=== PATIENT | female | born 1985 | race Caucasian/White ===

== ENCOUNTER 2016-09-21 10:59 | Emergency (ER) | payer SELFPAY ==
--- NOTE | ~2016-09-21 | CR20 ---
[facility]. [facility] A Service of [facility] & [facility] RADIOLOGY TEXT RESULTS PATIENT: EBONIE WYATT LOCATION: SED : 81 UNIT #: [id number] AGE: [address]: Satinder Mix MD SEX: F ORDER DR: [id number] [address] [address] [id number] E MR#: [id number] Acc #: [id number] NAME: EBONIE WYATT : 1985 SEX: F STUDY DATE/TIME: 09/21/2016 09:46 UNIT: SED ROOM: STUDY DESCRIPTION: CR Ankle Min 3 Views Lt Attending Physician: Satinder Mix M.D. Ordering Physician: Satinder Mix M.D. Primary Care Physician: Primary Care Physician No MEDICAL IMAGING REPORT This report is preliminary unless electronic signature is present. EXAM Left ankle 3 views 09/21/2016 0946 hours HISTORY 31-year-old woman who rolled her ankle and fell in her driveway 1 week ago with persistent pain, swelling and bruising laterally. COMPARISON None. FINDINGS AP, lateral and oblique views demonstrate lateral greater than medial soft tissue swelling. There is no fracture or dislocation. IMPRESSION There is lateral greater than medial soft tissue swelling with no fracture or dislocation seen. Dictated by... Latisha Pascual M.D. THIS IS AN ELECTRONICALLY VERIFIED REPORT Latisha Pascual M.D. at 09/21/2016 2:29 PM TIGIST/crista TD: 09/21/2016 12:23 JOB #: [id number] MEDICAL IMAGING REPORT Page 1 of 1
--- NOTE | ~2016-09-21 | CR126 ---
[facility]. [facility] A Service of [facility] & [facility] RADIOLOGY TEXT RESULTS PATIENT: EBONIE WYATT LOCATION: SED : 83 UNIT #: [id number] AGE: [address]: Satinder Mix MD SEX: F ORDER DR: [id number] [address] [address] [id number] E MR#: [id number] Acc #: [id number] NAME: EBONIE WYATT : 1985 SEX: F STUDY DATE/TIME: 09/21/2016 09:46 UNIT: SED ROOM: STUDY DESCRIPTION: CR Foot Complete Min 3 View Lt Attending Physician: Satinder Mix M.D. Ordering Physician: Satinder Mix M.D. Primary Care Physician: Primary Care Physician No MEDICAL IMAGING REPORT This report is preliminary unless electronic signature is present. EXAM Left foot 3 views 09/21/2016 0946 hours HISTORY Patient rolled foot and ankle in her driveway 1 week ago. Pain and swelling with bruising over toes extending laterally to the ankle. COMPARISON None. FINDINGS AP, lateral and oblique views demonstrate no fracture or dislocation. The toes and metatarsals are intact. IMPRESSION Negative left foot. Dictated by... Latisha Pascual M.D. THIS IS AN ELECTRONICALLY VERIFIED REPORT Latisha Pascual M.D. at 09/21/2016 2:29 PM TIGIST/crista TD: 09/21/2016 12:21 JOB #: [id number] MEDICAL IMAGING REPORT Page 1 of 1
[~2016-09-21 10:59] MED LIST: ALEVE-D SINUS-1 EACH PO; FOLIC ACID1 MG PO; MIDOL CAPLET1 EACH PO; NO MEDICATIONS; PERCOCET5/325 PO; PHENERGAN PO; THIAMINE HCL100 M2 PO; VIBRAMYCIN100 M1 PO
== END 2016-09-21 11:32 | disposition home or self-care (01) ==
LOC: SED 10:59
DX: S93.402A Sprain of unspecified ligament of left ankle, initial encounter (principal); S93.602A Unspecified sprain of left foot, initial encounter; F17.200 Nicotine dependence, unspecified, uncomplicated; Z98.890 Other specified postprocedural states; X50.1XXA Overexertion from prolonged static or awkward postures, initial encounter; W18.39XA Other fall on same level, initial encounter; Y93.89 Activity, other specified; Y92.009 Unspecified place in unspecified non-institutional (private) residence as the place of occurrence of the external cause
CPT/HCPCS: 29405; 73610; 73630; 99283